=== PATIENT | female | born 1960 | race Caucasian/White ===

== ENCOUNTER 2020-04-23 09:37 | Emergency (ER) | payer OTHER ==
[~2020-04-23] VITALS: Ht 165.1 cm; Wt 90.7 kg
[2020-04-23] MEDS ORDERED: ASA81BEC PO (09:44)
[2020-04-23] MEDS ORDERED: LIPITOR40 MG PO (09:44)
[2020-04-23] MEDS ORDERED: CARVEDILOL12.5 MG PO (09:44)
[2020-04-23] MEDS ORDERED: DIOVAN320 MG PO (09:45)
[2020-04-23] MEDS ORDERED: ISOSORBIDE DINI30 MG PO (09:45)
[2020-04-23] MEDS ORDERED: HYDROCHLOROTHIA25 M2 PO (09:46)
[2020-04-23 15:30] VITALS: BP 0/0
== END 2020-04-23 16:20 | disposition hospice, inpatient (51) ==
LOC: M.ERS 09:37
DX: I46.9 Cardiac arrest, cause unspecified (principal); Z20.828 Contact with and (suspected) exposure to other viral communicable diseases; Z79.899 Other long term (current) drug therapy; Z79.82 Long term (current) use of aspirin; Z88.0 Allergy status to penicillin